=== PATIENT | female | born 2000 ===

== ENCOUNTER → 2021-05-18 15:22 | Outpatient (CLI) | payer OTHER, SELFPAY ==
[2021-05-18 17:02] LABS: COVID19 -Nasal RAPID Negative (Negative)
== END ==
PROVIDERS: PCP Pediatrics; Visit Provider Physician Assistant
DX: J02.9 Acute pharyngitis, unspecified (principal); Z20.822 Contact with and (suspected) exposure to COVID-19
CPT/HCPCS: 87070; 87077; 87147; 87635

== ENCOUNTER → 2021-06-05 19:02 | Outpatient (CLI) | payer OTHER, SELFPAY | PROVIDERS: PCP Pediatrics; Visit Provider Physician Assistant | DX: Z20.2 Contact with and (suspected) exposure to infections with a predominantly sexual mode of transmission (principal) | CPT/HCPCS: 87491; 87591 ==

== ENCOUNTER → 2021-09-13 16:01 | Outpatient (CLI) | payer OTHER, SELFPAY ==
[2021-09-13 19:06] LABS: HIV 1 & 2 Ab/Ag 4th Gen Combo NEGATIVE (NEGATIVE)
[2021-09-14 08:42] LABS: HSV 2 IGG AB < 0.91 index (0.00-0.90); HSV1IGG 1.41 index (0.00-0.90)
== END ==
PROVIDERS: PCP Student in an Organized Health Care Education/Training Program; Referring Provider Student in an Organized Health Care Education/Training Program; Visit Provider Student in an Organized Health Care Education/Training Program
DX: Z11.3 Encounter for screening for infections with a predominantly sexual mode of transmission (principal)
CPT/HCPCS: 36415; 86695; 86696; 87389

== ENCOUNTER → 2022-09-27 16:23 | Outpatient (ROUT) | payer OTHER, SELFPAY ==
[2022-10-03 06:36] LABS: Chlamydia trachomatis NAA Negative (Negative); Neisseria gonorrhoeae NAA Negative (Negative)
== END ==
PROVIDERS: PCP Student in an Organized Health Care Education/Training Program; Visit Provider Internal Medicine
DX: Z72.51 High risk heterosexual behavior (principal)
CPT/HCPCS: 87491; 87591; 87661

== ENCOUNTER → 2022-09-28 11:38 | Outpatient (CLI) | payer OTHER, SELFPAY ==
[2022-09-30 15:46] LABS: HIV 1 & 2 Ab/Ag 4th Gen Combo NEGATIVE (NEGATIVE); Hep C Virus Ab w/Reflex Quant NEGATIVE s/c (NEGATIVE)
[2022-10-02 15:36] LABS: Hepatitis B Virus HBV DNA not detected IU/mL (.)
[2022-10-29 14:01] LABS: Treponema pallidum Antibodies Non Reactive
== END ==
PROVIDERS: PCP Student in an Organized Health Care Education/Training Program; Referring Provider Registered Nurse; Visit Provider Registered Nurse
DX: Z72.51 High risk heterosexual behavior (principal)
CPT/HCPCS: 36415; 86780; 86803; 87389